=== PATIENT | male | born 1950 | race Caucasian/White ===

== ENCOUNTER → 2024-01-21 06:16 | Day surgery (SDC) | payer MEDICARE, OTHER, SELFPAY | LOC: GI 06:16 | PROVIDERS: ATTENDING PHYSICIAN Internal Medicine Gastroenterology | DX: Z12.11 Encounter for screening for malignant neoplasm of colon (principal); D12.2 Benign neoplasm of ascending colon; D12.3 Benign neoplasm of transverse colon; K57.30 Diverticulosis of large intestine without perforation or abscess without bleeding; K64.8 Other hemorrhoids; Z98.0 Intestinal bypass and anastomosis status | CPT/HCPCS: 45385; 88305 ==

== ENCOUNTER → 2024-09-12 09:12 | Outpatient (REF) | payer MEDICARE, OTHER, SELFPAY | LOC: HWRCS 09:12 | PROVIDERS: ATTENDING PHYSICIAN Internal Medicine | DX: I10 Essential (primary) hypertension (principal); R01.1 Cardiac murmur, unspecified | CPT/HCPCS: 93306 ==

== ENCOUNTER → 2024-09-28 12:11 | Outpatient (REF) | payer MEDICARE, OTHER, SELFPAY | LOC: HWRAD 12:11 | PROVIDERS: ATTENDING PHYSICIAN Internal Medicine; FAMILY PHYSICIAN Internal Medicine | DX: N39.0 Urinary tract infection, site not specified (principal) | CPT/HCPCS: 76770 ==

== ENCOUNTER → 2025-01-10 15:00 | Outpatient (REF) | payer MEDICARE, OTHER, SELFPAY ==
[2025-01-10 11:37] LABS: Hematocrit 45.7 % (39.0-52.0); Hemoglobin 16.2 g/dL (13.0-18.0); Mean Corp Hgb Conc. 35.4 g/dL (33.0-37.0); Mean Corpuscular Volume 91.8 fL (80.0-94.0); Platelet Count 106 10^3/uL (130-400); Red Cell Dist. Width 13.3 % (11.5-14.5)
[2025-01-10 13:01] LABS: Iron 86 ug/dl (49-181)
[2025-01-10 13:12] LABS: Total Iron Binding Capacity 286 ug/dl (261-462)
[2025-01-10 13:32] LABS: Ferritin 171.0 ng/ml (17.9-464.0)
== END ==
LOC: OIDL 15:00
PROVIDERS: ATTENDING PHYSICIAN Internal Medicine Hematology & Oncology
DX: D75.1 Secondary polycythemia (principal); D69.6 Thrombocytopenia, unspecified; E83.110 Hereditary hemochromatosis; E53.8 Deficiency of other specified B group vitamins
CPT/HCPCS: 82728; 83540; 83550; 85025

== ENCOUNTER → 2025-02-05 06:33 | Outpatient (REF) | payer MEDICARE, OTHER, SELFPAY | LOC: HWRAD 06:33 | PROVIDERS: ATTENDING PHYSICIAN Internal Medicine | DX: J18.9 Pneumonia, unspecified organism (principal); J84.9 Interstitial pulmonary disease, unspecified | CPT/HCPCS: 71046 ==

== ENCOUNTER → 2025-03-07 12:00 | Outpatient (REF) | payer MEDICARE, OTHER, SELFPAY | LOC: DHSLP 12:00 | PROVIDERS: ATTENDING PHYSICIAN Internal Medicine Critical Care Medicine; FAMILY PHYSICIAN Internal Medicine; REFERRING PHYSICIAN Internal Medicine Critical Care Medicine | DX: G47.33 Obstructive sleep apnea (adult) (pediatric) (principal); R09.02 Hypoxemia | CPT/HCPCS: 95800 ==

== ENCOUNTER → 2025-05-15 07:56 | Outpatient (REF) | payer MEDICARE, OTHER, SELFPAY | LOC: HWRCS 07:56 | PROVIDERS: ATTENDING PHYSICIAN Internal Medicine; FAMILY PHYSICIAN Internal Medicine | DX: R06.09 Other forms of dyspnea (principal); R79.89 Other specified abnormal findings of blood chemistry; I89.0 Lymphedema, not elsewhere classified | CPT/HCPCS: 78452; 93017; A9500; J2785 ==

== ENCOUNTER 2025-05-18 09:45 | Day surgery (SDC) | payer MEDICARE, OTHER, SELFPAY ==
[2025-05-18 10:53] VITALS: BMI 43.2
[2025-05-18 11:06] VITALS: BP 135/71
[2025-05-18] MEDS: NSS 398 ML IV (11:14)
[2025-05-18] MEDS: LOW STRENGTH ASPIRIN 81 MG PO (11:15)
[2025-05-18 13:05] VITALS: BP 127/74
--- NOTE | 2025-05-18 14:43 | PTCARENOTE ---
pt found w head on table in front of her , stating she needs to lie down . she was diaphortic and pale w sustained hr of 36. pt did have low heart rate on admission as low as 36 but not sustained, dr garcía aware of this since admission. layed pt
back in chair bp 97/36 and responding to questions . suleman campos ink technician at bedside 0.[address] garcía call to bedside to evaluate pt and speak with family .
--- NOTE | 2025-05-18 16:56 | ITS.CL.PN ---
[employer] - Procedure Note
Procedure
Procedure Note:
CARDIAC CATHETERIZATION REPORT
Date of Procedure: 05/18/2025
Referring: Dr. Bi Mancilla MD
Indication: dyspnea on exertion, positive cardiac stress test
PROCEDURE(S)
1. right heart catheterization
2. left heart catheterization
3. coronary angiography
ACCESS
1. 6F right radial artery (closure: radial band)
2. 5F right antecubital vein (closure: manual hemostasis)
CATHETERS
1. 5F Stringer-[place] Alice
2. 6F JR4
3. 6F JL4
MODERATE SEDATION: 25 minutes of moderate sedation was utilized. An independent certified medical aide was present to assist with and help manage the patient's level of consciousness and physiologic status.
HEMODYNAMIC DATA
LV 139/11 (EDP 22) mmHg
AO 127/81 (mean 98) mmHg
RA 11 mmHg
RV 37/10 (EDP 14) mmHg
PA 38/20 (mean 29) mmHg
PCWP 14 mmHg
SaO2 89.1%
SvO2 67.8%
Hb 16.2 g/dL
CO/CI 6.45/2.66 L/min/m2
SVR 1078 dsc*-5
PVR 2.3 Wood units
CORONARY ANGIOGRAPHY
Dominance: Right
LM: Large, normal
LAD: Large vessel giving rise to a large branching ramus/D1, small D2, and small D3. There are trivial luminal irregularities only.
LCx: Moderate caliber vessel giving rise to a small OM1, small OM2, and small OM3. There are trivial luminal irregularities only.
RCA: Large vessel giving rise to a small RPDA and moderate caliber RPL branch. There are trivial luminal irregularities only.
RADIATION: dose 332 mGy; DAP 31.5 Gy*cm2; fluoroscopy time 7.0 min
CONCLUSIONS
1. Trivial luminal irregularities only in a right dominant system
2. Mildly elevated biventricular filling pressures, mild pulmonary hypertension, and normal cardiac output.
3. No aortic stenosis on hemodynamic pullback.
RECOMMENDATIONS
1. Primary prevention of coronary artery disease
2. Workup for etiology of dyspnea not related to epicardial coronary artery, volume overload, or pulmonary hypertension.
Copy to: Dr. Bi Mancilla MD (supervisor dairy sanitation); Dr. Isaac Maciel MD (PCP)
Signed: Shimon Sharpe MD, PhD
== END 2025-05-18 16:10 | disposition home or self-care (01) ==
LOC: CATH 09:45
PROVIDERS: ATTENDING PHYSICIAN Student in an Organized Health Care Education/Training Program; FAMILY PHYSICIAN Internal Medicine; OTHER PHYSICIAN Internal Medicine
DX: I27.20 Pulmonary hypertension, unspecified (principal); R06.09 Other forms of dyspnea; Z79.899 Other long term (current) drug therapy
CPT/HCPCS: 99152; 99153; 93460; C1769; C1894; Q9967

== ENCOUNTER → 2025-05-21 08:03 | Outpatient (REF) | payer MEDICARE, OTHER, SELFPAY ==
--- NOTE | 2025-05-21 09:30 | CARDSERVLU ---
Echocardiogram with Lumason completed after protocol screening completed. Allergies verified.
Patent IV site: left AC
IV site flushed with 0.9% NaCl pre and post administration.
Diluted bolus method utilized to enhance visualization of ventricular bridges.
Total volume given: __3.0__ mL
Patient tolerated all procedures well without complications.
== END ==
LOC: RCS 08:03
PROVIDERS: ATTENDING PHYSICIAN Internal Medicine; FAMILY PHYSICIAN Internal Medicine
DX: R06.09 Other forms of dyspnea (principal); R79.89 Other specified abnormal findings of blood chemistry; I89.0 Lymphedema, not elsewhere classified
CPT/HCPCS: 93306; Q9950